=== PATIENT | female | born 1995 | race Caucasian/White ===

== ENCOUNTER 2017-03-19 16:00 | Inpatient (IN) | payer BC ==
[~2017-03-19] VITALS: Ht 165.1 cm; Wt 54.5 kg
--- NOTE | ~2017-03-19 | OR ---
PATIENT'S NAME: ROSA ROSE [facility] AGE: 21 Y [address] ROOM: [place] [address] LOCATION: [facility] ADMIT DATE: 03/22/2017 OR/Procedure Report DISCHARGE DATE: FAMILY PHYSICIAN: Corona Kurtz MD ATTENDING PHYSICIAN: CAT VIRK SURGEON: Cat Virk MD PAINT TRIMMER PIPE BOWLS: DATE OF PROCEDURE: 03/22/2017 ANESTHESIOLOGIST: Dimas Stack MD ANESTHESIA: General. COMPLICATIONS: None. ESTIMATED BLOOD LOSS: 200 mL. PREOPERATIVE DIAGNOSES: 1. L4-5 moderate to severe degenerative disk disease, severe mechanical low back pain. 2. 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 POSTOPERATIVE DIAGNOSES: 1. L4-5 moderate to severe degenerative disk disease, severe mechanical low back pain. 2. 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 PROCEDURES PERFORMED: 1. L4-5 interbody and posterolateral instrumented arthrodesis. 2. Insertion of bilateral L4 and bilateral L5 pedicle screws (system used is [employer] Solera System). 3. Insertion of expandable titanium cage into L4-5 disk (system used is [employer] RISE implant). 4. Insertion of bone morphogenic protein into L4-5 disk. 5. Insertion of mixture of allograft, autograft, and demineralized bone matrix bone posterolaterally across L4-5 level for posterolateral arthrodesis. 6. Intraoperative fluoroscopy and interpretation. CLINICAL HISTORY: The patient is a 21-year-old female patient who was diagnosed clinically and on imaging to have the above-mentioned diagnoses. The patient has failed conservative treatment options. I recommended the above mentioned surgeries to treat her symptoms. The patient was interested in proceeding with surgery. So, she was brought in for the operation. PATIENT'S NAME: ROSA ROSE [facility] AGE: 21 Y [address] ROOM: [place] [address] LOCATION: [facility] ADMIT DATE: 03/22/2017 OR/Procedure Report DISCHARGE DATE: FAMILY PHYSICIAN: Corona Kurtz MD ATTENDING PHYSICIAN: CAT VIRK DESCRIPTION OF PROCEDURE: The patient was seen in the preoperative care unit, and the correct side was marked. Then, she was transferred to the main operating theater, given general anesthetic, and underwent endotracheal intubation without complications. Preoperative antibiotics were given. Jane catheter and calf compressors were used throughout the procedure. The patient was then turned to prone position on a gel-padded Curt table, and all her joints and bony prominences were securely padded. The lumbar region was exposed. The midline lumbar scar from previous cord untethering was identified. Surgical site was then prepped and draped as per usual. I started by marking a midline incision incorporating the previous scar from L4 to L5. The surgical incision was infiltrated with 0.25% Marcaine with epinephrine. Skin was sharply opened down to the subcutaneous tissue. Then, using monopolar cautery, the posterior elements of L4 and L5 were exposed bilaterally. As expected, there was an L4-5 laminectomy defect with overlying scar. I had no complications during the exposure. The correct level was confirmed using intraoperative fluoroscopy. I started by inserting pedicle screws into L4 and L5 vertebrae. Based on the standard anatomical landmarks and using intraoperative fluoroscopy, bilateral L4 and bilateral L5 pedicle screws from [employer] Solera System were inserted without any complications. Anteroposterior and lateral projection x-rays were done, and those showed satisfactory placement of the hardware. I was satisfied with that. Then, I proceeded to perform the interbody fusion. I did that from the left side. The lateral aspect of the L4 lamina was thinned down to the ligamentum flavum and intertransverse ligament, and those were removed using Kerrison rongeur. The annulus of the L4-5 disk was exposed. The annulus was coagulated and incised. Then, a formal L4-5 diskectomy for arthrodesis was performed using different sizes curettes and pituitary rongeur. I was satisfied with that. Then, I packed autograft bone into the anterior aspect of the disk as well as bone morphogenic protein. Then, an expandable titanium cage from [employer] RISE implant was inserted into L4-5 disk under fluoroscopy guidance without any complications. The disk was expanded without any complications. I was satisfied with that. Entry into the disk was sealed using DuraSeal. Then, I proceeded to insert rods and lock the screws. Bilateral rods were inserted. Screws were capped and finally locked. Final x-ray was performed, and that showed satisfactory placement of the hardware and no complications. Then, I proceeded to irrigate the wound. The wound was irrigated with bacitracin-containing irrigation. Then, the L4 spinous process as well as the L5 spinous process were removed using Kerrison rongeur. Then, the right L4-5 PATIENT'S NAME: ROSA ROSE [facility] AGE: 21 Y [address] ROOM: [place] [address] LOCATION: [facility] ADMIT DATE: 03/22/2017 OR/Procedure Report DISCHARGE DATE: FAMILY PHYSICIAN: Corona Kurtz MD ATTENDING PHYSICIAN: CAT VIRK facet joint was decorticated as well as the residual L4 and L5 laminae for posterolateral arthrodesis. The exposed dura was covered with Gelfoam. Then, a mixture of autograft, allograft, and DBM bone was inserted posterolaterally around the hardware for posterolateral arthrodesis. Then, a 1/ Hemovac drain was inserted into the wound, tunneled, and secured to the skin with 3-0 Prolene. Then, the wound was closed in layers with #1 Vicryl to the paraspinal muscles, #1 Vicryl to the fascia, 2-0 Vicryl to the subcutaneous tissue, and tyson for the skin. Sterile dressing was applied. At the end of the operation, the instrument and sponge counts were correct. The patient tolerated the operation without any complications. CAT VIRK MD AB/modl /[id number] CC: Corona Kurtz MD d: 03/22/17 1904 t: 03/24/17 1141, OPERATIVE SUMMARY
--- NOTE | ~2017-03-19 | DS ---
PATIENT'S NAME: ROSA ROSE [facility] AGE: 21 Y [address] ROOM: [id number] [place], [place] [address] LOCATION: [facility] ADMIT DATE: 03/22/2017 Discharge Summary DISCHARGE DATE: 03/24/2017 FAMILY PHYSICIAN: Corona Kurtz MD ATTENDING PHYSICIAN: Cat Virk ADMISSION MAIN DIAGNOSES: 1. L4-5 degenerative disk disease with mechanical low back pain. 2. History of L4-5 laminectomy and untethering of the spinal cord. DISCHARGE MAIN DIAGNOSES: 1. L4-5 degenerative disk disease with mechanical low back pain. 2. History of L4-5 laminectomy and untethering of the spinal cord. PROCEDURES DURING ADMISSION: L4-L5 interbody and posterolateral instrumented arthrodesis. COMPLICATIONS DURING ADMISSION: None. DISCHARGE INSTRUCTIONS AND FOLLOWUP APPOINTMENTS: 1. Dr. Cat Virk on April 03, 2017 for staple removal. 2. Corset brace when mobilizing. 3. Call my office for any concerns. 4. No heavy lifting (no more than 20 pounds), no back twisting, no forward bending. 5. Keep the dressing on and dry until March 31, 2017, then take off and keep the wound open to air. DISCHARGE MEDICATIONS: 1. Nicotine patch 14 mg apply every day. 2. OxyContin 20 mg p.o. q.a.m., 10 mg p.o. q.p.m. 3. Protonix 40 mg p.o. once daily. 4. Vitamin D synthetic cap 50,000 units p.o. every 7 days. 5. Flexeril 10 mg p.o. every 8 hours p.r.n. 6. Oxycodone 5 to 10 mg p.o. every 4 hours p.r.n. 7. Proventil HFA 6.7 gm 2 puffs every day p.r.n. 8. Xulane patch 1 patch every 7 days. HOSPITAL COURSE: The patient is a 21-year-old female patient, who was admitted electively to the hospital for the above mentioned surgery. She underwent an unremarkable operation. Postoperatively, she did very well. She had no new neurological deficits. Her pain was initially controlled on patient-controlled analgesia, and then she was switched to p.o. pain medications. She did well with that. She mobilized very well with physical therapy and occupational therapy. She also had postoperative lumbar spine x- PATIENT'S NAME: ROSA ROSE [facility] AGE: 21 Y [address] ROOM: [id number] [place] [id number] LOCATION: [facility] ADMIT DATE: 03/22/2017 Discharge Summary DISCHARGE DATE: 03/24/2017 FAMILY PHYSICIAN: Corona Kurtz MD ATTENDING PHYSICIAN: Cat Virk and that showed no complications and satisfactory placement of the hardware. On the day of discharge, the patient was examined. She continued to do well. She had no new neurological deficits. She was mobilizing very well. Her incision was healing very well with no evidence of infection or dehiscence. I reviewed the discharge instructions with the patient and her mother. The patient was found stable for discharge. She will be discharged home today. CAT VIRK MD AB/modl /[id number] CC: Corona Kurtz MD d: 03/24/17 2327 t: 03/26/17 1129, DISCHARGE SUMMARY
[~2017-03-19 16:00] MED LIST: DRISDOL 5050000 UNIT PO; HYDROCODON-ACE1 EAC4 PO; PROVENTIL OR V6.7 GM INH; XULANE PATCH1 EACH TRANS
[2017-03-22] MEDS ORDERED: PROTONIX40 MG PO (06:48)
--- NOTE | 2017-03-22 14:15 | NUR ---
Introduced self/role to patient and her father. At this point they were not aware of any needs but mom was in the gift shop and would probably know best. Added my name to her marker board, will follow up with them tomorrow.
--- NOTE | 2017-03-22 15:50 | NUR ---
Attempted to see patient at 1530. Patient just up to floor in p.m. from spinal surgery. Will check back 03/23 for OT rosemary. Aminata, OTR/L
[2017-03-22 16:16] LABS: HEMATOCRIT 31.4 % (33.0-46.0); HEMOGLOBIN 10.4 g/dL (11.0-15.0); MCH 32.3 pg (27.0-34.0); MCHC 33.1 gm/dL (32.0-36.5); MCV 97.5 fl (83.0-98.0); MPV 9.1 fl (9.4-12.4); RDW-CV 12.5 % (11.9-14.6); WBC 13.4 K/uL (4.0-11.0)
[2017-03-22 16:18] LABS: RBC 3.22 M/uL (3.50-5.00)
--- NOTE | 2017-03-23 04:10 | NUR ---
Shift Summary: PATIENT RUNS HYPOTENSIVE 90S-LOW 100S. HR RUNS 50-60S. MOVES ALL EXTREMITIES WITH PURPOSEFUL. WIGGLES TOES AND FINGERS, EQUAL STRENGTH AND NORMAL SENSATION. DENIES NUMBNESS AND TINGLING, DENIES HEADACHE. PULSES 2+, NO EDEMA. ZOFRAN AND PHENERGAN GIVEN FOR NAUSEA FROM PAIN MEDICATION. PAIN POORLY CONTROLLED. WARDROBE MANAGER PUMP DEMAND ONLY. 0.4MG. CONSISTENTLY RATES PAIN AT 7/10. RESTING IN BED CURRENTLY. FLEXERIL GIVEN AT 0200. BACK DRESSING HAS A SMALL AMOUNT OF DRAINAGE ON IT. HEMOVAC HAD 75 OUTPUT. MOVES WITH 1 ASSIST. CORSET BRACE ON WHEN UP. Follow Up: PAIN CONTROL
[2017-03-23 06:22] LABS: ANION GAP 11.5 (10.0-19.0); POTASSIUM 3.5 mMol/L (3.7-5.1)
--- NOTE | 2017-03-23 12:00 | NUR ---
Followed up with patient and introduced self to mom. Denied any needs or barriers to going home. Mom stated this was the same surgery she had so familiar with what is needed.
--- NOTE | 2017-03-23 16:48 | NUR ---
Pt alert, oriented. She has been been up to the bathroom about 6 times with nurse or mother assist. Ambulates fairly well. Back dressing has old shadow drng most of the dressing. No increase this shift. Pt hemovac intact and 60 ml out. Pt voids well and denies frequency now. Nicotine patch on left arm. Pt has some numbness Rt buttock and thigh otherwise WNL. Pt has rated pain from 5-8. EXECUTIVE ASSOCIATE was locked out at 60 min at 0900 this morning and will be stopped this sujit. Pt taking oxycontin IR x3, last at 1530. Flexeril last at 1230. Pt amb in [place] x1 with brace on with PT. Pt had zofran at 0740 for nausea and none since. Pt mom here and assists with her cares. PT has been low. Last one was 92/35. Was on Rt side. She is on room air.
--- NOTE | 2017-03-24 05:03 | NUR ---
Pt is a SBA. Mother is in room and will take pt to bathroom. Dressing has shadow drainage, no change in amount. Hemovac has 65 cc's out. Pt getting scheduled oxycontin and prn oxycodone and flexeril. Pt had Nausea w/ small emesis x 2. Pt received iv zofran after the first emesis and im phenergan after the 2nd. Pt denied Nausea since. Pt complained of iv stinging, so iv site changed. Pt's pain ranges from a 4-7/10. Pt states still a little numbness on right buttock. Nicotine patch on. Corsett brace in room.
[2017-03-24 05:16] LABS: HEMATOCRIT 34.2 % (33.0-46.0); HEMOGLOBIN 11.5 g/dL (11.0-15.0); MCH 32.9 pg (27.0-34.0); MCHC 33.6 gm/dL (32.0-36.5); MCV 97.7 fl (83.0-98.0); MPV 9.1 fl (9.4-12.4); RBC 3.5 M/uL (3.50-5.00); RDW-CV 12.6 % (11.9-14.6); WBC 9.6 K/uL (4.0-11.0)
[2017-03-24 05:28] LABS: ANION GAP 10.3 (10.0-19.0); POTASSIUM 3.3 mMol/L (3.7-5.1)
[2017-03-24] MEDS ORDERED: COLACE100 MG PO (11:38)
[2017-03-24] MEDS ORDERED: NICOTINE PATCH1 EAC1 TRANS (11:50)
[2017-03-24] MEDS ORDERED: OXYCONTIN EXTEN10 MG PO (11:51)
[2017-03-24] MEDS ORDERED: OXYCONTIN EXTEN20 MG PO (11:51)
[2017-03-24] MEDS ORDERED: FLEXERIL10 MG PO (11:52)
[2017-03-24] MEDS ORDERED: ROXICODONE 5MG (5 MG PO (11:52)
--- NOTE | 2017-03-24 12:46 | NUR ---
AOx3. VSS. CSM WNL. Patient had shower. Shower gaurds given to patient. Dressing was C/D/I. Patient had no questions or concerns about discharge instructions. Patient wheeled to [facility] for dismissal at 1240.
== END 2017-03-24 12:40 | disposition disaster alternative care site (69) | DRG 460 ==
LOC: G3N 03-22 06:03
PROVIDERS: ADMIT Neurological Surgery
PROC: 3E1038Z Irrigation of Skin and Mucous Membranes using Irrigating Substance, Percutaneous Approach (ICD-10-PCS; principal; 2017-03-22)
PROC: [UNRECOGNIZED PROCEDURE] (principal; 2017-03-22)
PROC: BR131ZZ Fluoroscopy of Lumbar Disc(s) using Low Osmolar Contrast (ICD-10-PCS; principal; 2017-03-22)
PROC: 0SG0371 Fusion of Lumbar Vertebral Joint with Autologous Tissue Substitute, Posterior Approach, Posterior Column, Percutaneous Approach (ICD-10-PCS; principal; 2017-03-22)
DX: M51.36 Other intervertebral disc degeneration, lumbar region (principal); Z87.898 Personal history of other specified conditions
CPT/HCPCS: C1713; J1040; J1100; J1170; J1644; J2001; J2250; J2405; J2550; J7030